=== PATIENT | male | born 1995 | race Caucasian/White ===

== ENCOUNTER 2018-11-05 21:48 | Emergency (ER) | payer BC, SELFPAY ==
[2018-11-05 22:03] VITALS: BP 166/89; PULSE 82; RESP 16; TEMP 36.5; O2SAT 98
[2018-11-05 22:54] LABS: Abs Immature Grans 0.02 k/cumm (0.0-0.09); Absolute Basophil Count 0.03 k/cumm (0.0-0.2); Absolute Eosinophil Count 0.14 k/cumm (0.0-0.7); Absolute Lymphocyte Count 3.75 k/cumm (1.2-3.4); Absolute Monocyte Count 1.04 k/cumm (0.11-0.7); Absolute Neutrophil Count 7.96 k/cumm (1.2-6.7); Basophils % 0.2; Eosinophils % 1.1; HCT 43.1 % (40.0-50.0); HGB 14.6 g/dL (13.5-17.5); Immature Grans % 0.2; Mean Corp. HGB Concentration 33.9 g/dL (32.0-36.0); Mean Corpuscular Hemoglobin 28.8 pg (27.0-33.0); Mean Platelet Volume 11.4 fL (8.0-11.0); Neutrophils % 61.5; Platelet Count 283 x1000/uL (130-400); RBC 5.07 m/cumm (4.50-6.00); RBC Distribution Width 13.9 % (11.8-14.1); White Blood Cell Count 12.94 k/cumm (4.4-10.8)
[2018-11-05 23:08] LABS: ALT 28 U/L (12-78); AST 20 U/L (15-37); Albumin 4.1 g/dL (3.4-5.0); Alkaline Phosphatase 64 U/L (46-116); Anion Gap 10.7 mmol/L (3-11); BUN 10 mg/dL (7-18); Bilirubin, Total 0.3 mg/dL (0.2-1.0); CO2 29.3 mmol/L (21.0-32.0); CREATININE 0.91 mg/dL (0.70-1.30); Calcium 9.4 mg/dL (8.5-10.1); Chloride 104 mmol/L (98-107); Glucose 113 mg/dL (70-100); Lipase 74 U/L (73-393); Potassium 3.6 mmol/L (3.5-5.1); Sodium 144 mmol/L (136-145)
--- NOTE | 2018-11-05 23:49 | W.ED.GENAD ---
Discharge Plan Disposition Patient Disposition: HOME Condition: Stable Discharge Details Chief Complaint: Abd Prob Clinical Impression: Abdominal pain Reason For Visit: vomiting Primary Care Provider: [facility] ED Provider: Brennen Hammonds Home Meds and New Rx's Prescriptions: No Action Vyvanse 50 MG capsule 50 mg PO DAILY RF: 0 guanfacine [Intuniv ER] 1 MG tablet extended release 24 hr 1 mg PO RF: 0 clonidine HCl [Catapres] 0.1 MG tablet 0.1 mg PO PRN PRNRF: 0 losartan 25 mg Tablet 25 mg PO DAILY RF: 0 Discharge Instructions Instructions: Biliary Colic (ED), Abdominal Pain (ED) Additional Instructions: Return immediately to the emergency department for any fever chills, persistent nausea and vomiting, any significant increase in your pain or discomfort. Otherwise you may use the provided pain medication and nausea medication as needed for symptoms. You should call the radiology department tomorrow morning for arrangement of your ultrasound and call general surgery to schedule appointment for reassessment tomorrow. Stand Alone Forms: School Release Referrals: Satnam Meneses III, DO [OSTEOPATHIC DOCTOR] - Discharge Data Discharge Date/Time-TO BE ENTERED AT DEPARTURE: 11/06/18 00:28 Medical Decision Making Patient presenting to the emergency department for chief complaint of abdominal pain and vomiting. He states that this occurred approximately 1-2 hours after eating [employer] chili. No one else that had dinner with them got sick or is feeling ill. He states that he vomited twice and has had some improvement of nausea no longer feels need to vomit but still does have some persistent abdominal pain. Physical exam shows right upper quadrant tenderness to palpation otherwise soft abdomen. Patient does have a significant Arvizu sign as well. Given that patient is otherwise overall improving and his symptoms and denies need for pain or nausea medication at this time I do feel that just simple lab draw to check LFTs lipase and CBC. Labs were reviewed and show no significant change of LFTs, electrolytes, or other findings on CMP, and normal range lipase, and CBC showing some leukocytosis. Given time a day that patient presents to the emergency department we do not have official ultrasound available so bedside ultrasound was utilized to view gallbladder which does show some wall thickening but no obvious stones are present. Patient is still significantly tender in the right upper quadrant. Given normal liver function I did choose to speak with general surgery prior to performing any further imaging given the patient's symptoms have improved with no interventions. Spoke with Dr. Meneses general surgeon in regards to patient's presentation. We agreed upon plan of care for patient to be discharged home with supportive care and for patient to be scheduled for outpatient ultrasound tomorrow along with the patient informed to contact general surgery office tomorrow morning for arrangement of reassessment appointment. Patient is stable and has noted no further symptoms so I feel that he is able to be safely discharged. Patient was sent home with 1 tablet of ibuprofen and Zofran in case he becomes symptomatic and given clear instructions to return for new or worsening symptoms. After discussion of diagnosis and plan of care patient has no further needs, questions, or concerns and states clear understanding to return to the emergency department for any worsening symptoms. HPI General Mode of arrival: ambulatory. Date/Time Provider Initiated Documentation: 11/05/18 21:48. Limitations to Documentation: no limitations. Information obtained by: patient and RN notes reviewed. History of Present Illness 23 year old M presents to the emergency department with the chief complaint of abd pain, described as moderate, with intensity rated at 6. Quality is described as sharp, and is localized to the abdomen. Patient started experiencing this hour(s) (4) No relieving factors improve symptom(s), Eating worsens symptoms . Patient notes no other symptoms.. Patient did receive the following treatments prior to arrival, none Related Data Home Medications Medication Instructions Recorded Confirmed Vyvanse 50 mg PO DAILY 07/13/17 11/06/18 clonidine HCl [Catapres] 0.1 mg PO PRN PRN 07/13/17 11/06/18 guanfacine [Intuniv ER] 1 mg PO 07/13/17 losartan 25 mg PO DAILY 11/06/18 11/06/18 Allergies Allergy/AdvReac Type Severity Reaction Status Date / Time Penicillins AdvReac Intermediate Skin Rash Unverified 11/06/18 11:42 Sulfa (Sulfonamide AdvReac Intermediate Skin Rash Unverified 11/06/18 11:42 Antibiotics) General Stated Complaint: Abd Prob HAMIDA: 3 Review of Systems Constitutional Denies chills, Denies fever(s) and Denies poor appetite Cardiovascular Denies chest pain and Denies dyspnea Respiratory Denies dyspnea Gastrointestinal Reports as per HPI, Reports abdominal pain, Denies melena, Denies change in bowel habits, Denies constipation, Denies diarrhea, Reports nausea and Reports vomiting Genitourinary Denies hematuria, Denies difficulty urinating, Denies urinary hesitancy, Denies urinary incontinence and Denies urinary urgency Integumentary/Breasts Denies rash [facility] Social History Smoking/Tobacco Use Status: Current every day Exam Const General: cooperative Orientation: alert, awake and oriented x3 Resp Effort & Inspection: normal respiratory effort and able to speak in complete sentences Auscultation: clear to auscultation bilaterally Cardio Rate: regular rate Rhythm: regular rhythm Heart Sounds: S1 normal and S2 normal GI Palpation: soft, no hepatosplenomegaly, not firm, guarding in the RUQ, no masses, no pulsatile masses, not rigid, no splenomegaly and tender in the RUQ and Arvizu's sign positive; not in the epigastrum, not at McBurney's point, not periumbilically and Rovsing's sign negative Auscultation: normal bowel sounds Back/Spine/Pelvis Back: no CVA tenderness Neuro General: alert, awake, oriented x3, gait normal and moves all extremities Course Vital Signs Temperature 36.5 C 11/05/18 22:03 Pulse 82 11/05/18 22:03 Respiratory Rate 16 11/05/18 22:03 Blood Pressure 166/89 H 11/05/18 22:03 Pulse Oximetry 98 11/05/18 22:03 Temperature 36.5 C 11/05/18 22:03 Temperature Source Temporal Artery Scan 11/05/18 22:03 Pulse 82 11/05/18 22:03 Respiratory Rate 16 11/05/18 22:03 Respiratory Effort Non-Labored 11/05/18 22:06 Blood Pressure 166/89 H 11/05/18 22:03 Blood Pressure Position Sitting 11/05/18 22:03 Pulse Oximetry 98 11/05/18 22:03 Oxygen Delivery Method Room Air 11/05/18 22:03 Oxygen Flow Rate 0 11/05/18 22:03 Pain Level 5 11/05/18 22:03 Lab/Test Results Lab/Test Results: Laboratory Tests Range/Units 11/05/18 11/05/18 22:45 22:45 WBC (4.4-10.8) k/cumm 12.94 H RBC (4.50-6.00) m/cumm 5.07 Hgb (13.5-17.5) g/dL 14.6 Hct (40.0-50.0) % 43.1 MCV (80-95) fL 85.0 MCH (27.0-33.0) pg 28.8 MCHC (32.0-36.0) g/dL 33.9 RDW (11.8-14.1) % 13.9 Plt Count (130-400) x1000/uL 283 MPV (8.0-11.0) fL 11.4 H Immature Gran % 0.2 Neutrophils % 61.5 Lymphocytes % 29.0 Monocytes % 8.0 Eosinophils % 1.1 Basophils % 0.2 Absolute Neutrophils (1.2-6.7) k/cumm 7.96 H Absolute Lymphocytes (1.2-3.4) k/cumm 3.75 H Absolute Monocytes (0.11-0.7) k/cumm 1.04 H Absolute Eosinophils (0.0-0.7) k/cumm 0.14 Absolute Basophils (0.0-0.2) k/cumm 0.03 Sodium (136-145) mmol/L 144 Potassium (3.5-5.1) mmol/L 3.6 Chloride (98-107) mmol/L 104 Carbon Dioxide (21.0-32.0) mmol/L 29.3 Anion Gap (3-11) mmol/L 10.7 BUN (7-18) mg/dL 10 Creatinine (0.70-1.30) mg/dL 0.91 Estimated GFR/1.73 m2 (mL/min/1.73m2) >= 60.00 Glucose (70-100) mg/dL 113 H Calcium (8.5-10.1) mg/dL 9.4 Total Bilirubin (0.2-1.0) mg/dL 0.3 AST (15-37) U/L 20 ALT (12-78) U/L 28 Alkaline Phosphatase (46-116) U/L 64 Total Protein (6.4-8.2) g/dL 8.0 Albumin (3.4-5.0) g/dL 4.1 Lipase (73-393) U/L 74
--- NOTE | 2018-11-05 23:54 | ED.GENADUL_ITS ---
Discharge Plan Disposition Patient Disposition: HOME Condition: Stable Discharge Details Chief Complaint: Abd Prob Clinical Impression: Abdominal pain Reason For Visit: vomiting Primary Care Provider: [facility] ED Provider: Brennen Hammonds Home Meds and New Rx's Prescriptions: No Action Vyvanse 50 MG capsule 50 mg PO DAILY RF: 0 guanfacine [Intuniv ER] 1 MG tablet extended release 24 hr 1 mg PO RF: 0 clonidine HCl [Catapres] 0.1 MG tablet 0.1 mg PO PRN PRNRF: 0 losartan 25 mg Tablet 25 mg PO DAILY RF: 0 Discharge Instructions Instructions: Biliary Colic (ED), Abdominal Pain (ED) Additional Instructions: Return immediately to the emergency department for any fever chills, persistent nausea and vomiting, any significant increase in your pain or discomfort. Otherwise you may use the provided pain medication and nausea medication as need ed for symptoms. You should call the radiology department tomorrow morning for arrangement of your ultrasound and call general surgery to schedule appointment for reassessment tomorrow. Stand Alone Forms: School Release Referrals: Satnam Meneses III, DO [OSTEOPATHIC DOCTOR] - Discharge Data Discharge Date/Time-TO BE ENTERED AT DEPARTURE: 11/06/18 00:28 Medical Decision Making Patient presenting to the emergency department for chief complaint of abdominal pain and vomiting. He states that this occurred approximately 1-2 hours after eating [employer] chili. No one else that had dinner with them got sick or is feeling ill. He states that he vomited twice and has had some improvement of nausea no longer feels need to vomit but still does have some persistent abdominal pain. Physical exam shows right upper quadrant tenderness to palpation otherwise soft abdomen. Patient does have a significant Arvizu sign as well. Given that patient is otherwise overall improving and his symptoms and denies need for pain or nausea medication at this time I do feel that just simple lab draw to check LFTs lipase and CBC. Labs were reviewed and show no significant change of LFTs, electrolytes, or other findings on CMP, and normal range lipase, and CBC showing some leukocytosis. Given time a day that patient presents to the emergency department we do not have official ultrasound available so bedside ultrasound was utilized to view gallbladder which does show some wall thickening but no obvious stones are present. Patient is still significantly tender in the right upper quadrant. Given normal liver function I did choose to speak with general surgery prior to performing any further imaging given the patient's symptoms have improved with no interventions. Spoke with Dr. Meneses general surgeon in regards to patient's presentation. We agreed upon plan of care for patient to be discharged home with supportive care and for patient to be scheduled for outpatient ultrasound tomorrow along with the patient informed to contact general surgery office tomorrow morning for arrangement of reassessment appo intment. Patient is stable and has noted no further symptoms so I feel that he is able to be safely discharged. Patient was sent home with 1 tablet of ibuprofen and Zofran in case he becomes symptomatic and given clear instructions to return for new or worsening symptoms. After discussion of diagnosis and plan of care patient has no further needs, questions, or concerns and states clear understanding to return to the emergency department for any worsening symptoms. HPI General Mode of arrival: ambulatory . Date/Time Provider Initiated Documentation: 11/05/18 21:48 . Limitations to Documentation: no limitations . Information obtained by: patient and RN notes reviewed . History of Present Illness 23 year old M presents to the emergency department with the chief complaint of abd pain, described as moderate, with intensity rated at 6. Quality is described as sharp, and is localized to the abdomen. Patient started experiencing this hour(s) (4) No relieving factors improve symptom(s), Eating worsens symptoms . Patient notes no other symptoms.. Patient did receive the following treatments prior to arrival, none Related Data Home Medications Medication Instructions Recorded Confirmed Vyvanse 50 mg PO DAILY 07/13/17 11/06/18 clonidine HCl [Catapres] 0.1 mg PO PRN PRN 07/13/17 11/06/18 guanfacine [Intuniv ER] 1 mg PO 07/13/17 losartan 25 mg PO DAILY 11/06/18 11/06/18 Allergies Allergy/AdvReac Type Severity Reaction Status Date / Time Penicillins AdvReac Intermediate Skin Rash Unverified 11/06/18 11:42 Sulfa (Sulfonamide AdvReac Intermediate Skin Rash Unverified 11/06/18 11:42 Antibiotics) General Stated Complaint: Abd Prob HAMIDA: 3 Review of Systems Constitutional Denies chills, Denies fever(s) and Denies poor appetite Cardiovascular Denies chest pain and Denies dyspnea Respiratory Denies dyspnea Gastrointestinal Reports as per HPI, Reports abdominal pain, Denies melena, Denies change in bowel habits, Denies constipation, Denies diarrhea, Reports nausea and Reports vomiting Genitourinary Denies hematuria, Denies difficulty urinating, Denies urinary hesitancy, Denies urinary incontinence and Denies urinary urgency Integumentary/Breasts Denies rash [facility] Social History Smoking/Tobacco Use Status: Current every day Exam Const General: cooperative Orientation: alert, awake and oriented x3 Resp Effort & Inspection: normal respiratory effort and able to speak in complete sentences Auscultation: clear to auscultation bilaterally Cardio Rate: regular rate Rhythm: regular rhythm Heart Sounds: S1 normal and S2 normal GI Palpation: soft, no hepatosplenomegaly, not firm, guarding in the RUQ, no masses, no pulsatile masses, not rigid, no splenomegaly and tender in the RUQ and Arvizu's sign positive; not in the epigastrum, not at McBurney's point, not periumbilically and Rovsing's sign negative Auscultation: normal bowel sounds Back/Spine/Pelvis Back: no CVA tenderness Neuro General: alert, awake, oriented x3, gait normal and moves all extremities Course Vital Signs Temperature 36.5 C 11/05/18 22:03 Pulse 82 11/05/18 22:03 Respiratory Rate 16 11/05/18 22:03 Blood Pressure 166/89 H 11/05/18 22:03 Pulse Oximetry 98 11/05/18 22:03 Temperature 36.5 C 11/05/18 22:03 Temperature Source Temporal Artery Scan 11/05/18 22:03 Pulse 82 11/05/18 22:03 Respiratory Rate 16 11/05/18 22:03 Respiratory Effort Non-Labored 11/05/18 22:06 Blood Pressure 166/89 H 11/05/18 22:03 Blood Pressure Position Sitting 11/05/18 22:03 Pulse Oximetry 98 11/05/18 22:03 Oxygen Delivery Method Room Air 11/05/18 22:03 Oxygen Flow Rate 0 11/05/18 22:03 Pain Level 5 11/05/18 22:03 Lab/Test Results Lab/Test Results: Laboratory Tests Range/Units 11/05/18 11/05/18 22:45 22:45 WBC (4.4-10.8) k/cumm 12.94 H RBC (4.50-6.00) m/cumm 5.07 Hgb (13.5-17.5) g/dL 14.6 Hct (40.0-50.0) % 43.1 MCV (80-95) fL 85.0 MCH (27.0-33.0) pg 28.8 MCHC (32.0-36.0) g/dL 33.9 RDW (11.8-14.1) % 13.9 Plt Count (130-400) x1000/uL 283 MPV (8.0-11.0) fL 11.4 H Immature Gran % 0.2 Neutrophils % 61.5 Lymphocytes % 29.0 Monocytes % 8.0 Eosinophils % 1.1 Basophils % 0.2 Absolute Neutrophils (1.2-6.7) k/cumm 7.96 H Absolute Lymphocytes (1.2-3.4) k/cumm 3.75 H Absolute Monocytes (0.11-0.7) k/cumm 1.04 H Absolute Eosinophils (0.0-0.7) k/cumm 0.14 Absolute Basophils (0.0-0.2) k/cumm 0.03 Sodium (136-145) mmol/L 144 Potassium (3.5-5.1) mmol/L 3.6 Chloride (98-107) mmol/L 104 Carbon Dioxide (21.0-32.0) mmol/L 29.3 Anion Gap (3-11) mmol/L 10.7 BUN (7-18) mg/dL 10 Creatinine (0.70-1.30) mg/dL 0.91 Estimated GFR/1.73 m2 (mL/min/1.73m2) >= 60.00 Glucose (70-100) mg/dL 113 H Calcium (8.5-10.1) mg/dL 9.4 Total Bilirubin (0.2-1.0) mg/dL 0.3 AST (15-37) U/L 20 ALT (12-78) U/L 28 Alkaline Phosphatase (46-116) U/L 64 Total Protein (6.4-8.2) g/dL 8.0 Albumin (3.4-5.0) g/dL 4.1 Lipase (73-393) U/L 74
[2018-11-06 00:18] VITALS: BP 156/79; PULSE 80; RESP 15; TEMP 36.5; O2SAT 98
[2018-11-06] MEDS: Ibuprofen 600 MG TAB PO (00:21)
[2018-11-06] MEDS: Ondansetron O.D.T. 4 MG TABEF PO (00:21)
== END 2018-11-06 00:28 | disposition home or self-care (01) ==
PROVIDERS: Emergency Provider Nurse Practitioner Family
DX: R10.9 Unspecified abdominal pain (principal)
CPT/HCPCS: 36415; 80053; 83690; 99283; 85025

== ENCOUNTER 2018-11-06 11:33 | Outpatient (CLI) | payer BC, SELFPAY ==
--- NOTE | 2018-11-06 11:13 | DI.US_ITS ---
SYMPTOM/DIAGNOSIS: RUQ PAIN, POSITIVE GOLDEN'S SIGN ABDOMEN ULTRASOUND: There are no prior comparison exams. The liver is mildly enlarged and shows diffuse fatty infiltration. No focal liver lesions are seen. A couple of stones are noted. There is a stone in the neck which is non mobile. There is borderline gallbladder wall thickening. No pericholecystic fluid or biliary dilatation is seen. The tail of the pancreas was obscured by bowel gas. The kidneys, spleen and aorta are unremarkable. IMPRESSION: Cholelithiasis. There is a non mobile stone seen in the gallbladder neck.
== END 2018-11-06 11:53 ==
PROVIDERS: Visit Provider Nurse Practitioner Family
DX: R10.11 Right upper quadrant pain (principal); K80.20 Calculus of gallbladder without cholecystitis without obstruction; R16.0 Hepatomegaly, not elsewhere classified
CPT/HCPCS: 76700

== ENCOUNTER 2018-11-06 11:36 | Emergency (ER) | payer BC, SELFPAY ==
[2018-11-06 11:39] VITALS: BP 148/76; PULSE 66; RESP 16; TEMP 36.7; O2SAT 99
--- NOTE | 2018-11-06 12:07 | ED.GENADUL_ITS ---
Discharge Plan Disposition Patient Disposition: HOME Condition: Improving Discharge Details Chief Complaint: Recheck Clinical Impression: Biliary colic, Cholelithiasis Primary Care Provider: Nazia,Local ED Provider: Michelle Holland Home Meds and New Rx's Prescriptions: Continued Vyvanse 50 MG capsule 50 mg PO DAILY RF: 0 guanfacine [Intuniv ER] 1 MG tablet extended release 24 hr 1 mg PO RF: 0 clonidine HCl [Catapres] 0.1 MG tablet 0.1 mg PO PRN PRNRF: 0 losartan 25 mg Tablet 25 mg PO DAILY RF: 0 Discharge Instructions Instructions: Biliary Colic (ED), Abdominal Pain (ED) Additional Instructions: Drink plenty of fluids and get plenty of rest. Avoid fried or fatty foods which may make your pain or symptoms worse. Call the number for general surgery to schedule follow-up appointment for reevaluation if your pain persists. Return immediately to the emergency department if you have any acute worsening or new concerning symptoms such as fever, persistent vomiting or worsening pain. Referrals: Satnam Meneses III, DO [OSTEOPATHIC DOCTOR] - Discharge Data Discharge Date/Time-TO BE ENTERED AT DEPARTURE: 11/06/18 12:20 Discharge Physician: Michelle Holland Medical Decision Making 23-year-old male with history of hypertension ADHD who presents for follow-up on abdominal ultrasound results. Patient was seen here yesterday for upper abdominal pain after eating chili. Patient had had a few episodes of vomiting and left upper quadrant pain but states the ED physician had palpated right upper quadrant pain. Patient had lab work which noted a white blood cell count of 12 but remainder of labs were unremarkable. Patient had come after hours and no ultrasound was available. Patient states he was given ibuprofen and Zofran which he took last night and his pain completely resolved. He denies any nausea vomiting pain or fever this morning and states he feels much better. Radiology called and stated that patient was noted to have multiple gallstones but no evidence of gallbladder wall thickening or pericholecystic fluid, and hence no signs of acute cholecystitis. Upon my examination the patient, his abdomen is soft and has very minimal right upper quadrant tenderness but states this is much better since yesterday. He overall states he feels much better and states he feels good to go home. Patient was given a referral for general surgery yesterday. He is instructed to call them to schedule a follow-up appointment for reevaluation if his pain persists. He is instructed to return here immediately with any fever, persistent vomiting, or significant worsening abdominal pain. HPI General Mode of arrival: ambulatory . Date/Time Provider Initiated Documentation: 11/06/18 11:56 . Limitations to Documentation: no limitations . Information obtained by: patient . HPI Narrative: Patient is a 23-year-old male with history of hypertension ADHD who presents for follow-up on abdominal ultrasound results. Patient was seen here yesterday for upper abdominal pain after eating chili. Patient had had a few episodes of vomiting and left upper quadrant pain but states the ED physician had palpated right upper quadrant pain. Patient had lab work which noted a white blood cell count of 12 but remainder of labs were unremarkable. Patient had come after hours and no ultrasound was available. Patient states he was given ibuprofen and Zofran which he took last night and his pain completely resolved. He denies any nausea, vomiting or or pain or fever this morning and states he feels much be tter. Related Data Home Medications Medication Instructions Recorded Confirmed Vyvanse 50 mg PO DAILY 07/13/17 11/06/18 clonidine HCl [Catapres] 0.1 mg PO PRN PRN 07/13/17 11/06/18 guanfacine [Intuniv ER] 1 mg PO 07/13/17 losartan 25 mg PO DAILY 11/06/18 11/06/18 Allergies Allergy/AdvReac Type Severity Reaction Status Date / Time Penicillins AdvReac Intermediate Skin Rash Unverified 11/06/18 11:42 Sulfa (Sulfonamide AdvReac Intermediate Skin Rash Unverified 11/06/18 11:42 Antibiotics) General Stated Complaint: Recheck HAMIDA: 4 Review of Systems Review of Systems All systems reviewed & are unremarkable except as noted in HPI and below Constitutional Reports as per HPI, Denies chills and Denies fever(s) Eyes Denies blurry vision ENT Denies dizziness, Denies sore throat and Denies throat swelling Cardiovascular Denies chest pain and Denies dyspnea Respiratory Denies cough and Denies dyspnea Gastrointestinal Denies abdominal pain, Denies diarrhea and Denies vomiting Genitourinary Denies hematuria and Denies dysuria Musculoskeletal Denies back pain and Denies numbness Integumentary/Breasts Denies lesions and Denies rash Neurologic Denies dizziness, Denies focal weakness and Denies numbness Allergic/Immunologic Denies throat swelling PFSH Medical History ADHD (Acute) HTN (hypertension) (Chronic) Surgical History No significant past surgical history (Acute) Social History Smoking/Tobacco Use Status: Current every day alcohol intake: current alcohol intake frequency: a few times a month substance use type: marijuana Exam Const General: cooperative, healthy appearing and no acute distress HENMT Head: normal to inspection Face and sinus: normal facial exam Eyes General: appearance normal, both eyes and all related structures EOM: EOM intact bilaterally Neck Neck: normal visual inspection and No submandibular swelling Lymphatic: no lymphadenopathy noted Chest Chest: normal inspection of the chest and no tenderness Resp Effort & Inspection: normal respiratory effort and able to speak in complete sentences Auscultation: clear to auscultation bilaterally Cardio Rate: regular rate Rhythm: regular rhythm GI Inspection: normal to inspection Palpation: soft, not firm, not rigid and tender in the RUQ (Very minimal); with no rebound tenderness Auscultation: normal bowel sounds Male General Exam: Yes normal external exam Skin General skin exam: no rashes or lesions noted Neuro General: alert, awake and oriented x3 Cognition: normal cognition Speech: speech normal Motor: muscle tone normal throughout Sensory Exam: no sensory deficits noted Extrem General: normal to inspection, full ROM and no edema Psych Appearance: grossly normal Mental Status: mental status grossly normal Speech and Movement: speech and movement normal Affect: normal affect Course Vital Signs Temperature 98.1 F 11/06/18 11:39 Pulse 66 11/06/18 11:39 Respiratory Rate 16 11/06/18 11:39 Blood Pressure 148/76 H 11/06/18 11:39 Pulse Oximetry 99 11/06/18 11:39 Temperature 98.1 F 11/06/18 11:39 Temperature Source Temporal Artery Scan 11/06/18 11:39 Pulse 66 11/06/18 11:39 Respiratory Rate 16 11/06/18 11:39 Respiratory Effort Non-Labored 11/06/18 11:41 Blood Pressure 148/76 H 11/06/18 11:39 Blood Pressure Position Sitting 11/06/18 11:39 Pulse Oximetry 99 11/06/18 11:39 Oxygen Delivery Method Room Air 11/06/18 11:39 Oxygen Flow Rate 0 11/06/18 11:39 Pain Level 0 11/06/18 11:39
[2018-11-06 12:21] VITALS: BP 148/76; PULSE 66; RESP 16; TEMP 36.7; O2SAT 99
== END 2018-11-06 12:20 | disposition home or self-care (01) ==
LOC: ER 12:46
PROVIDERS: Emergency Provider Physician Assistant
DX: K80.20 Calculus of gallbladder without cholecystitis without obstruction (principal); I10 Essential (primary) hypertension